=== PATIENT | male | born 1980 | race Caucasian/White ===

== ENCOUNTER 2019-01-11 14:29 | Emergency (ER) | payer OTHER ==
[~2019-01-11] VITALS: Ht 175.3 cm; Wt 90.7 kg
[2019-01-11] MEDS ORDERED: PREDNISONE 10 M10 M1 PO (15:26)
[2019-01-11 15:33] VITALS: BP 131/99
== END 2019-01-11 15:34 | disposition home or self-care (01) ==
LOC: M.ERS 14:29
DX: L25.5 Unspecified contact dermatitis due to plants, except food (principal)

== ENCOUNTER 2021-04-10 16:04 | Emergency (ER) | payer OTHER ==
[~2021-04-10] VITALS: Ht 175.3 cm; Wt 93.0 kg
[~2021-04-10 16:04] MED LIST: PREDNISONE 10 M10 M1 PO
[2021-04-10] MEDS ORDERED: MOBIC7.5 MG PO (16:30)
[2021-04-10] MEDS ORDERED: HYDROCODON-ACE1 EAC7 PO (16:34)
[2021-04-10 16:46] VITALS: BP 141/82
== END 2021-04-10 16:47 | disposition home or self-care (01) ==
LOC: M.ERS 16:04
DX: G89.29 Other chronic pain (principal); M54.5 Low back pain; M25.512 Pain in left shoulder